=== PATIENT | female | born 1980 | race Caucasian/White ===

== ENCOUNTER 2023-10-14 08:49 | Emergency (ER) | payer OTHER, SELFPAY ==
[2023-10-14 09:17] VITALS: BP 140/91
--- NOTE | 2023-10-14 10:29 | ED.GENMED ---
History of Present Illness
General
Chief Complaint: Abdominal Pain
Source: patient
Exam Limitations: none
Time Seen by Provider: 10/14/23 10:08
Nursing documentation reviewed up to this point in time: agreed with
History of Present Illness
History of Present Illness:
43 y/o F with no chronic medical problems
has a palpable mass to RLQ for months
she noticed it 'back in the spring' saw her PCP who ordered an US and pt claims that she didn't get an US appt for a few months
she still has not had any imaging
last karin she appearntly had something seen on he rR ovary, but they thought it was a cyst; she never f/u for it
she says it was at [place]
the past few days she has had more discomfort in this lump area but then 7 am this morning the pain was severe, where she felt like she was going to rupture her bowels
it has eased up now
she took motrin lats night but nothing this morning
no fever, vomiting, constipation, uarinayr sypmtoms
she still gets menstrual period and sometimes bleeds through in between
Past History
Past History
ED Past Medical History: Other (R abdominal mass)
ED Past Surgical History: None
Social History
Tobacco: Non-smoker
Alcohol: None
Employment: Employed
Review of Systems
Review of Systems
Allergies reviewed?: Yes
All Other Systems: Not applicable
Phy Exam
Physical Exam
Physical Exam:
GENERAL: Alert , in no apparent distress
EYE: pupils equal and reactive
NECK: Supple
ENT: o/p clr, mmm.
CARDIAC: Regular rate and rhythm .
LUNGS: Clear breath sounds bilaterally, no acute respiratory distress, no wheezes/rales/rhonchi
ABDOMEN: Soft, palpable firm RLQ mass, large approx 10 x 12 cm, no skin changes; mildly tender, no r/g, no cvat, normal bowel sounds
NEUROLOGICAL: Alert and oriented, no focal neuro deficits
SKIN: Warm and dry, skin intact.
MUSCULOSKELETAL: No edema, well perfused.
PSYCH: Normal and appropriate interaction.
Course
Orders/Labs/Results
Orders:
Orders
10/14/23 10:26
US Pelvis W Transvag Combined Urgent
Reason For Exam: suspect R ovarian mass, eval for torsion
10/14/23 10:27
Iohexol [Omnipaque] See Protocol PO NOW STA
Ketorolac [Toradol] 30 mg IV NOW STA
Test Result ONCE
10/14/23 10:42
Complete Blood Count/With Diff Urgent
Comprehensive Metabolic Panel Urgent
HCG, Serum Qualitative Screen Urgent
Urinalysis Reflex To Culture Urgent
Date Specimen was Collected: 10/14/23
Time Specimen was Collected: 10:36
Abnormal Lab Results
10/14/23
10:42
RBC 4.06 L 10^6/uL
(4.20-5.40)
Hct 34.7 L %
(37.0-47.0)
Chloride 108 H mmol/L
(98-107)
10/14/23 10:42
10/14/23 10:42
Vital Signs
Initial and Last Documented VS:
Initial Vital Signs
Temp Pulse Resp BP Pulse Ox
98.2 F 95 16 140/91 100
10/14/23 09:17 10/14/23 09:17 10/14/23 09:17 10/14/23 09:17 10/14/23 09:17
Last Documented Vital Signs
Temp Pulse Resp BP Pulse Ox
98.2 F 76 16 118/73 99
10/14/23 09:17 10/14/23 14:00 10/14/23 14:00 10/14/23 14:00 10/14/23 14:00
MDM/Problems Addressed
Differential Diagnosis Includes:
ovarian cyst, ovarian torsion, malignancy
MDM/Problems Addressed:
43 y/o F with RLQ palpable mass x 1 year, has had imaging previously suggsting endometrioma was measuring 8x6x7 cm previously 2022
has not had ob/gyne f/u
pt sys the are ahas gottne larger
she sometimes has pain but the past 2-3 days mild RLQ right where th emass is palpated
but it got much worse this am 7 am
sh enow feels better, no meds taken
lasted a while but did feel much better on arrival
no nuase/avomiting
no fever
no urinary symptoms
no diarreha
well appearing
large mass RLQ no tenderness
labs unremarkable, normal wbc, normal ua
US shows large 11 cm mass now on r adnexal favored to be endometriom
apt also has one on L ovary, much smaller
d/w ayana ttending
i did po prep the patietn in case we would need CT but with resolution of pain, explanation of the mass, an dnormal labs do not suspect that pt has another process as cause for pain
d/w dr. guzamn from gyne
agrees with d/c home for ouatpietn f/u
has not had recurrence of pain here, unlikely to be intermittent torsion
return precautions given.
pt will likely require b/l oophrectomy
*Critical Care Note
Total Time (30-74mins, 75-104mins- exclusive of procedures): Not Applicable
ED Attending Note
-
Portions of this chart may have been created with voice recognition software.� Occasional wrong word or��sound alike� substitutions may have occurred due to the inherent limitations of voice recognition software.
Discharge Plan
Departure
Patient Disposition: Home (Routine Discharge)
Date of Disposition: 10/14/23
Time of Disposition: 14:37
Patient with high blood pressure during this ER visit?: No
Condition: Fair
Covid-19: Not Applicable
Discharge Problem:
Endometrioma of ovary
Instructions: Ovarian Cyst ED
Referrals:
[facility], [Other]
Carole Guzman MD [Active] - Follow up in 1 week (ob/gyne)
Josie Hagen PA-C [Family Provider] -
Activity Restrictions/Additional Instructions:
You have a very large ovarian mass on your right side and you also have 1 in your left side that favors that this is endometrioma
YOU NEED TO CALL OB/GYNE to have this evaluated
they will likely need to take you for surgery to remove these
return for severe sudden worsenign of pain because this can cause ovarian torsion (which is an emergency)
return for any concerns.
Interventions
Interventions:
*Risk Screen - Suicide Last Done: 10/14/23 10:35
*General Assessment Last Done: 10/14/23 10:35
*Neglect/Abuse Screening Last Done: 10/14/23 10:35
ED- Fall Risk Assessment Last Done: 10/14/23 10:36
*ED COVID-19 Vaccine History Last Done: 10/14/23 10:35
*Nursing Disposition Last Done: 10/14/23 14:46
YY-Vcelkv-Znbnllcvks Assessment Last Done: 10/14/23 10:46
Discharge Date and Time
Discharge Date/Time: 10/14/23 14:48
Print Language: GEORGIAN
[2023-10-14 10:33] VITALS: BMI 26.4
[2023-10-14 10:46] VITALS: BP 138/90
[2023-10-14 10:52] LABS: % Basophils 0.9 % (0-2); % Eosinophils 1.8 % (0-6); % Immature Granulocytes 0.3 % (0-0.5); % Lymphocytes 22.7 % (20.5-51.1); % Monocytes 8.8 % (1.7-9.3); % Neutrophils 65.5 % (42.2-75.2); Absolute Basophils 0.1 10^3/uL (0-0.2); Absolute Eosinophils 0.1 10^3/uL (0-0.7); Absolute Lymphocytes 1.5 10^3/uL (1.2-3.4); Absolute Monocytes 0.6 10^3/uL (0.1-0.6); Absolute Neutrophils 4.4 10^3/uL (1.4-6.5); Hematocrit 34.7 % (37.0-47.0); Hemoglobin 12.3 g/dL (12.0-16.0); Mean Corp Hgb Conc. 35.4 g/dL (33.0-37.0); Mean Corpuscular Hgb 30.3 pg (27.0-31.0); Mean Corpuscular Volume 85.5 fL (81.0-99.0); Mean Platelet Volume 8.8 fL (7.4-10.4); Nucleated Red Blood Cells % 0 %; Platelet Count 288 10^3/uL (130-400); Red Blood Cell Count 4.06 10^6/uL (4.20-5.40); White Blood Cell Count 6.7 10^3/uL (4.8-10.8)
[2023-10-14] MEDS: TORADOL 30 MG IV (10:56)
[2023-10-14 11:00] VITALS: BP 139/91
[2023-10-14 11:00] LABS: Urine Albumin Negative (Neg - Trace); Urine Bilirubin Negative (Negative); Urine Character Clear (Clear); Urine Color Yellow; Urine Glucose Negative (Negative); Urine Ketone Negative (Negative); Urine Leukocyte Negative (Negative); Urine Nitrite Negative (Negative); Urine Occult Blood Negative (Negative); Urine Urobilinogen Negative (Neg - 1+)
[2023-10-14] MEDS: OMNIPAQUE 50 ML PO (11:00)
[2023-10-14 11:09] LABS: HCG, Serum Qualitative Screen Negative
[2023-10-14 11:12] LABS: ALT (SGPT) 17 U/L (0-35); AST (SGOT) 25 U/L (14-36); Albumin 4.7 g/dl (3.5-5.0); Alkaline Phosphatase 43 U/L (38-126); Blood Urea Nitrogen 10 mg/dl (7-17); Carbon Dioxide 25 mmol/L (22-30); Chloride 108 mmol/L (98-107); Estimated Creatinine Clearance 99 ml/min; Glucose 90 mg/dl (70-99); Potassium 4.1 mmol/L (3.5-5.1); Sodium 139 mmol/L (135-145); Total Bilirubin 0.5 mg/dl (0.2-1.3); Total Protein 7.5 g/dl (6.3-8.2); eGFR > 60.00
[2023-10-14 12:17] VITALS: BP 137/88
[2023-10-14 13:20] VITALS: BP 115/79
[2023-10-14 14:00] VITALS: BP 118/73
--- NOTE | 2023-10-14 14:42 | EDRN ---
Jose PALMA in room w /pt at this time.
== END 2023-10-14 14:48 | disposition home or self-care (01) ==
LOC: EMR 08:49
PROVIDERS: Physician Assistant; EMERGENCY PHYSICIAN Emergency Medicine; FAMILY PHYSICIAN Physician Assistant
DX: R10.31 Right lower quadrant pain (principal); N80.121 Deep endometriosis of right ovary; N83.202 Unspecified ovarian cyst, left side; D25.9 Leiomyoma of uterus, unspecified
CPT/HCPCS: 99284; 96374; 76830; 76856; 80053; 81003; 84703; 85025